=== PATIENT | male | born 1955 | race Caucasian/White ===

== ENCOUNTER 2017-04-28 09:52 | Emergency (ER) | payer OTHER ==
[2017-04-28 10:01] VITALS: RESP 16
--- NOTE | 2017-04-28 11:44 | EDPHY ---
ED Progress Note Narrative: This patient was evaluated with Gavin Aguero. I reviewed the MRI study. Patient will follow up with Dr. Washington Darling as an outpatient there is no acute process but he most likely will require decompression surgery of the cervical spine.
--- NOTE | 2017-04-28 11:44 | EDPHY ---
H & P Stated Complaint: tingling in left arm intermittantly since friday. Time Seen by Provider: 04/28/17 10:17 HPI/ROS: Chief complaint: Tingling in left arm History of present illness: This is a 62-year-old male who presents to the emergency department for evaluation of tingling in his left arm. Patient reports the onset of symptoms yesterday. He states the tingling radiates down the outer aspect of his upper arm and forearm and into his hand most notably the palm and 1st 3 digits. He denies precipitating factors. He does state is worse with certain movements especially lifting his arm up. He denies associated signs or symptoms including no weakness in the arm or involvement other parts of the body at this time. No headache, no neck pain or other signs or symptoms. He does state over the last month he has had intermittent numbness in both of his arms but this usually occurs when he wakes up in the morning and resolved on its own. No history of recent trauma. No other complaints. Review of systems: A 10 point review of systems was obtained and other than described above was negative - Personal History Current Tetanus/Diphtheria Vaccine: Yes Current Tetanus Diphtheria and Acellular Pertussis (TDAP): Yes - Medical/Surgical History Hx Asthma: No Hx Chronic Respiratory Disease: No Hx Diabetes: No Hx Cardiac Disease: No Hx Renal Disease: No Hx Cirrhosis: No Hx Alcoholism: No Hx HIV/AIDS: No Hx Splenectomy or Spleen Trauma: No Other PMH: pmh: HTN, cholesterol, pneumonia. psh: none - Social History Smoking Status: Never smoked - Physical Exam Exam: General Appearance: Alert, nontoxic Eyes: PERRLA Respiratory: Lungs clear to auscultation bilaterally Cardiac: Regular rate and rhythm. Gastrointestinal: Soft, nondistended, nontender. Neurological: Alert and oriented x4. Cranial nerves 2-12 grossly intact. Strength is intact in the extremities upper and lower symmetrically. Patient reports decreased sensation in his left arm, the rest of the extremities with good sensation. Skin: No rashes or lesions noted to the left upper extremity. Musculoskeletal: Head is nontender. The spine is nontender without crepitus or bony deformity or step-off. Patient is moving all extremities well including the left upper extremity with good strength. Constitutional: Initial Vital Signs Temperature (C) 36.4 C 04/28/17 09:58 Heart Rate 67 04/28/17 09:58 Respiratory Rate 16 04/28/17 09:58 Blood Pressure 142/97 H 04/28/17 09:58 O2 Sat (%) 93 04/28/17 09:58 O2 Delivery Mode Room Air Allergies/Adverse Reactions: No Known Allergies Allergy (Unverified 04/28/17 09:57) Home Medications: Medication Instructions Recorded Lisinopril 04/28/17 SIMVASTATIN 04/28/17 Medical Decision Making - Diagnostics Imaging Results: Imaging Impressions Cervical Spine MRI 04/28/17 10:25 Impression: 1. C4-C5 and C5-C6 severe central canal stenosis with cord compression and deformity secondary to degenerative disk disease with dorsal disk/osteophyte complexes and bilateral uncovertebral osteophytes also resulting in bilateral neural foraminal stenosis, worse on the right at C5-C6. Cord compression and deformity at both of these levels without definite cord edema or myelomalacia. 2. C6-C7 moderate central canal stenosis and bilateral neural foraminal stenosis secondary to moderate degenerative disk disease with dorsal disk/ osteophyte complex, bilateral uncovertebral osteophytes and mild bilateral facet arthropathy. 3.Please see above findings at specific disk levels. Findings and recommendations discussed with Emergency Department physician, Gavin Aguero PA-C at 1120 hour, 04/28/2017. Final report concurs with initial preliminary interpretation. Imaging: Discussed imaging studies w/ marine cargo surveyor Radiologist ED Course/Re-evaluation: Patient is discussed with my secondary supervising physician Dr. Kenton Patel. Patient presents to the emergent department for left arm paresthesias. He has good strength in the arm. He otherwise has a nonfocal neurologic exam. MRI of the cervical spine shows cervical stenosis with cord compression. I have consulted with Dr. Washington Darling. He does not believe emergent intervention is necessary. He is happy to come see patient in the emergency room or patient can follow up in his clinic soon to discuss treatment. I have offered patient to have him see Neurosurgery here, he has declined, he would like to be discharged and follow up in clinic. He is given referral information. Further the neurosurgical clinic has contacted me and I have given them the patient's phone number and they will call him to arrange follow-up. Home care is discussed. Return precautions are given. Patient voiced understanding and agreement with plan. Differential Diagnosis: Included but not limited to herniated intervertebral disc, cord syndrome, musculoskeletal pain Departure - Departure Disposition: Home, Routine, Self-Care Clinical Impression: Paresthesia of arm, Cervical stenosis of spine Condition: Good Instructions: Cervical Spinal Stenosis (ED), Paresthesia (ED) Additional Instructions: Follow up with Neurosurgery for continued evaluation and care If symptoms worsen or new symptoms develop including increasing numbness, motor weakness, paralysis of extremities, bowel or bladder dysfunction or other signs or symptoms return to the emergency room for recheck Referrals: VALENTIN GUNDERSON [Other] - As per Instructions Roland Darling MD [Medical Doctor] - As per Instructions
[2017-04-28 11:59] VITALS: BP 128/75; PULSE 81; TEMP 97.7; O2SAT 98
== END 2017-04-28 11:59 | disposition home or self-care (01) ==
DX: R20.2 Paresthesia of skin (principal); M48.02 Spinal stenosis, cervical region; I10 Essential (primary) hypertension